=== PATIENT | male | born 1965 | race Caucasian/White ===

== ENCOUNTER 2016-12-29 13:55 | Observation (INO) | payer BC ==
--- NOTE | ~2016-12-29 | HP ---
History And Physical [id number] [place]. [address] NAME: APRIL GAINES : 67 STATUS : ADM Camila PAT#: [id number] AGE: 51 ADM/REG DATE : 12/29/16 MR#: [id number] REPORT SERV DATE: 12/30/16 DICTATED BY: Dianne SAHU DATE: 12/30/16 REPORT STATUS : Draft TRANSCRIBED BY: MODL DATE: 12/30/16 DATE OF ADMISSION: 12/29/2016 CHIEF COMPLAINT: Intractable left flank pain. HISTORY OF PRESENT ILLNESS: Mr. Gaines is a 51-year-old healthy white male with no previous significant history, seen at [facility] the day prior to admission for left flank pain. A CT showed a 4-5 mm left distal ureteral stone. He came to the ER here today with continued pain. A KUB showed a faint left distal calcification. He denied fever, chills, nausea, or vomiting. The ER was unable to control his pain and he is admitted for pain control and further intervention as appropriate. PAST MEDICAL HISTORY: Depression and arthritis. PAST SURGICAL HISTORY: None. HOME MEDICATIONS: Wellbutrin SR 150 at bedtime, Percocet q.4 hours p.r.n. pain, Phenergan 25 mg every six hours p.r.n., Flomax 0.4 mg daily, and Ambien 10 mg at bedtime. ALLERGIES: NO KNOWN DRUG ALLERGIES. FAMILY HISTORY: Negative for urologic disease. SOCIAL HISTORY: The patient is . He uses smokeless tobacco and alcohol three days a week. REVIEW OF SYSTEMS: A full twelve-point review of systems negative except as noted above. PHYSICAL EXAMINATION: GENERAL: Alert, uncomfortable 51-year-old white male. VITAL SIGNS: Afebrile with normal vital signs. HEENT: Normocephalic, atraumatic. CHEST: No respiratory distress. HEART: Regular rate and rhythm. ABDOMEN: Flat, nontender, nondistended. BACK: No CVA tenderness. EXTREMITIES: No peripheral edema noted. The patient is ambulatory. PERTINENT LABORATORY: Creatinine 1.58. White count 35864. Urinalysis positive for red cells, 2 white cells, otherwise unremarkable. KUB as noted above, is read as normal, but I can see a faint calcification consistent with his left distal stone. IMPRESSION: Left distal ureteral stone with intractable pain. PLAN: History And Physical [address] [address] NAME: APRIL GAINES : 67 STATUS : ADM Camila PAT#: [id number] AGE: 51 ADM/REG DATE : 12/29/16 MR#: [id number] REPORT SERV DATE: 12/30/16 DICTATED BY: Dianne SAHU DATE: 12/30/16 REPORT STATUS : Draft TRANSCRIBED BY: MAURICIO DATE: 12/30/16 1. We will admit, give IV fluids, and keep n.p.o. after midnight. We will try to control his pain. 2. We will reassess in the morning. His options are if he has not passed a stone, to be discharged and try to pass it versus ureteroscopic intervention that was completely discussed with the patient who had no unanswered questions. JOSE A/MAURICIO Dianne Sahu M.D. / [id number] CC: Dianne Sahu M.D.
--- NOTE | ~2016-12-29 | OP ---
Record Of Operation [facility] [address] [place]. [address] NAME: APRIL WHITLEY : 67 STATUS : ADM Camila PAT#: [id number] AGE: 51 ADM/REG DATE : 12/29/16 MR#: [id number] REPORT SERV DATE: 12/30/16 DICTATED BY: Dianne VALENCIA DATE: 12/30/16 REPORT STATUS : Draft TRANSCRIBED BY: MODL DATE: 12/30/16 DATE OF PROCEDURE: 12/30/2016 PREOPERATIVE DIAGNOSIS: Left distal ureteral stone. POSTOPERATIVE DIAGNOSIS: Left distal ureteral stone. PROCEDURE: Cystoscopy, left retrograde pyelography, ureteroscopy, intraureteral lithotripsy, stone extraction, double-J stent placement. SURGEON: Dianne Valencia M.D. ANESTHESIA: General with LMA. COMPLICATIONS: None. DRAINS: 7-Samoan x 26 cm Contour double-J stent. BRIEF HISTORY: Mr. Whitley is a 51-year-old white male with his first stone episode found to have a 4-5 mm left distal stone. He was admitted yesterday for intractable pain. I saw him this morning, and he was doing reasonably well but had not passed the stone. I offered him continued attempts at outpatient passage or intervention. He and especially his wanted to proceed with ureteroscopy. We discussed the risks of bleeding, infection, anesthesia, injury to adjacent organs, inability to access stone and the need for postoperative stent with its attendant misery. There were no unanswered questions. DESCRIPTION OF PROCEDURE: Under excellent general anesthesia, the patient was prepped and draped in standard lithotomy position. Cystoscopy was performed with a 30-degree lens, revealed a normal anterior urethra. Posterior showed some lateral lobe BPH. Inspection of the bladder revealed no tumors, stones, or foreign bodies with normal orifices. An 8-Samoan cone-tipped catheter was used to perform a left retrograde pyelogram and showed a filling defect in the distal ureter with proximal ureteral pyelocaliectasis. I inserted an angled glidewire through a 5-Samoan open-ended catheter and then inserted a short rigid ureteroscope alongside the wire. I engaged a perez-colored stone that appeared friable in nature. I engaged in a nitinol basket and broke it into multiple pieces within the ureter. I then extracted several pieces for analysis and left small crumbs for spontaneous passage. I then dilutely opacified the collecting system with the ureteroscope and retrofitted the wire into the cystoscope. I placed a 7-Samoan x 26 cm Contour double-J stent which coiled nicely in the renal pelvis and bladder. I plan to discharge Mr. Whitley this afternoon with the following instructions. DISCHARGE INSTRUCTIONS: 1. Home today. 2. I think he needs a stent for a week or 10 days. It can be removed either in the office or in the OR at his pleasure. As of now, I have not been able to contact his family. 3. Percocet 5/325 one to two p.o. q.4 hours p.r.n., #25. Record Of Operation [address] [place]. [address] NAME: APRIL WHITLEY : 67 STATUS : ADM Camila PAT#: [id number] AGE: 51 ADM/REG DATE : 12/29/16 MR#: [id number] REPORT SERV DATE: 12/30/16 DICTATED BY: Dianne VALENCIA DATE: 12/30/16 REPORT STATUS : Draft TRANSCRIBED BY: MAURICIO DATE: 12/30/16 4. Pyridium 200 mg one p.o. t.i.d. p.r.n. bladder pain, #15 with two refills. JOSE A/MAURICIO Dianne Valencia M.D. / [id number] CC: Dianne Valencia M.D.
[2016-12-29 11:59] LABS: BASOPHILS 0.1 %; BASOPHILS ABSOLUTE 0.01 10/3/uL (0.0-0.16); EOSINOPHILS 0 %; HEMATOCRIT 42.1 % (40.0-51.0); HEMOGLOBIN 13.9 g/dL (13.6-17.8); IMMATURE GRANULOCYTES 0.2 %; IMMATURE GRANULOCYTES ABSOLUTE 0.02 10/3/uL (0.0-0.11); LYMPHOCYTES 5.5 %; LYMPHOCYTES ABSOLUTE 0.59 10/3/uL (0.67-4.30); MEAN CORPUSCULAR HEMOGLOB 28.8 pg (26.0-34.0); MEAN CORPUSCULAR VOLUME 87.3 fL (80-100); MEAN PLATELET VOLUME 9.5 fL (9.2-13.0); MONOCYTES 6.2 %; MONOCYTES ABSOLUTE 0.66 10/3/uL (0.21-1.20); NEUTROPHILS ABSOLUTE 9.41 10/3/uL (2.02-8.40); PLATELET COUNT 221 10/3/uL (150-400); RBC DISTRIBUTION WIDTH 13.1 % (12.0-16.0); RED CELL COUNT 4.82 10/6/uL (4.7-6.1); WHITE BLOOD CELLS 10.7 10/3/uL (4.5-10.5)
[2016-12-29 12:03] LABS: MANUAL DIFF NO %
[2016-12-29 12:11] LABS: BUN (BLOOD UREA NITROGEN) 13 MG/DL (6-23); CALCIUM, SERUM 7.9 MG/DL (8.5-10.4); CHLORIDE, SERUM 107 MMOL/L (96-112); CO2 (CARBON DIOXIDE) 27 MMOL/L (24-34); CREATININE 1.58 MG/DL (0.70-1.30); GFR AFRICAN AMERICAN 58 ML/MIN (>=60); GFR NON AFRICAN AMERICAN 50 ML/MIN (>=60); GLUCOSE, SERUM 108 MG/DL (60-99); POTASSIUM, SERUM 3.9 MMOL/L (3.5-5.3); SODIUM, SERUM 142 MMOL/L (135-148)
[2016-12-29 13:26] LABS: ASCORBIC ACID (UR NOT ORDER) NEG (NEG); BILIRUBIN, URINE NEGATIVE (NEG); ER URINALYSIS TAT 0 Hrs 22 Mins; KETONE, URINE NEGATIVE (NEG); LEUKOCYTE ESTERASE(NOT OR NEG (NEG); NITRITE (URINE) NEG (NEG); WBC (NOT ORDERED) (RFLEX) 2 (0-5)
[2016-12-29 13:49] LABS: A/G RATIO 1.3 (0.7-1.9); ALBUMIN 3.8 G/DL (3.5-5.0); ALKALINE PHOSPHATASE 75 U/L (45-117); SGOT(AST) 18 U/L (5-40); SGPT(ALT) 17 U/L (5-65); TOTAL BILIRUBIN 0.8 MG/DL (0-1.2); TOTAL PROTEIN 6.8 G/DL (6.0-8.5)
[2016-12-29] MEDS ORDERED: AMB10 PO (17:03)
[2016-12-29] MEDS ORDERED: WELLSR150 PO (17:03)
[2016-12-29] MEDS ORDERED: PR25 PO (17:04)
[2016-12-29] MEDS ORDERED: PCET PO (17:04)
[2016-12-29] MEDS ORDERED: FLOMAX4 PO (17:04)
[2016-12-30 04:00] LABS: BUN (BLOOD UREA NITROGEN) 12 MG/DL (6-23); CALCIUM, SERUM 8.2 MG/DL (8.5-10.4); CHLORIDE, SERUM 107 MMOL/L (96-112); CO2 (CARBON DIOXIDE) 30 MMOL/L (24-34); GFR AFRICAN AMERICAN 74 ML/MIN (>=60); GFR NON AFRICAN AMERICAN 64 ML/MIN (>=60); GLUCOSE, SERUM 98 MG/DL (60-99); POTASSIUM, SERUM 4.4 MMOL/L (3.5-5.3); SODIUM, SERUM 143 MMOL/L (135-148)
[2016-12-30 04:04] LABS: BASOPHILS 0.1 %; BASOPHILS ABSOLUTE 0.01 10/3/uL (0.0-0.16); EOSINOPHILS 1.3 %; EOSINOPHILS ABSOLUTE 0.09 10/3/uL (0.0-0.53); HEMATOCRIT 40.1 % (40.0-51.0); HEMOGLOBIN 13.3 g/dL (13.6-17.8); IMMATURE GRANULOCYTES 0.3 %; IMMATURE GRANULOCYTES ABSOLUTE 0.02 10/3/uL (0.0-0.11); LYMPHOCYTES 16.8 %; LYMPHOCYTES ABSOLUTE 1.16 10/3/uL (0.67-4.30); MEAN CORPUS HGB CONC 33.2 g/dL (32.0-36.0); MEAN CORPUSCULAR HEMOGLOB 29.5 pg (26.0-34.0); MEAN CORPUSCULAR VOLUME 88.9 fL (80-100); MEAN PLATELET VOLUME 9.7 fL (9.2-13.0); MONOCYTES 9.1 %; MONOCYTES ABSOLUTE 0.63 10/3/uL (0.21-1.20); NEUTROPHILS 72.4 %; NEUTROPHILS ABSOLUTE 4.98 10/3/uL (2.02-8.40); PLATELET COUNT 212 10/3/uL (150-400); RBC DISTRIBUTION WIDTH 13.1 % (12.0-16.0); RED CELL COUNT 4.51 10/6/uL (4.7-6.1); WHITE BLOOD CELLS 6.9 10/3/uL (4.5-10.5)
[2016-12-30 04:13] LABS: MANUAL DIFF NO %
[2017-01-03 22:33] LABS: STONE COMPOSITION TWO DNR (())
== END 2016-12-30 14:50 | disposition home or self-care (01) ==
LOC: ER 13:55 → CDU1 17:41 → SDC/OF 12-30 11:29
PROVIDERS: Nurse Practitioner
PROC: 0TF78ZZ Fragmentation in Left Ureter, Via Natural or Artificial Opening Endoscopic (ICD-10-PCS; principal; 2016-12-29)
PROC: 0T778DZ Dilation of Left Ureter with Intraluminal Device, Via Natural or Artificial Opening Endoscopic (ICD-10-PCS; 2016-12-29)
DX: N20.1 Calculus of ureter (principal); F32.9 Major depressive disorder, single episode, unspecified; M19.90 Unspecified osteoarthritis, unspecified site; F17.200 Nicotine dependence, unspecified, uncomplicated; Z79.899 Other long term (current) drug therapy; Z23 Encounter for immunization
CPT/HCPCS: 74000; 74420; 80048; 80053; 81001; 82365; 85025; 90686; 93005; 96374; 96375; 96376; 99285; A9270-GY; C1758; C1769; C2617; G0008; G0378; J1170; J2250; J2405; J3010; Q9967